=== PATIENT | female | born 1965 | race Caucasian/White ===

== ENCOUNTER 2016-02-14 14:21 | Inpatient (IN) | payer MEDICARE, OTHER ==
[~2016-02-14] VITALS: Ht 157.5 cm; Wt 65.1 kg
[2016-02-14 14:31] VITALS: BP 136/87; PULSE 102; RESP 18; TEMP 98.5; O2SAT 98
[2016-02-14] MEDS ORDERED: LEXA20TA PO (14:38)
--- NOTE | 2016-02-14 14:46 | PD ---
HPI Chief Complaint: Medical Clearance Time Seen by Provider: 14:41 Travel History International Travel<30 days: No Contact w/Intl Traveler<30days: No Traveled to known affect area: No History of Present Illness HPI Patient is a 50-year-old female brought in by the [place] [employer] under a [place] act. Patient was reported missing by her younger sister earlier this morning. She stated that patient has been severely depressed and has schizophrenia. Patient has not been taking her medications in approximately 2 weeks and allegedly left the hotel where she was staying with her sister for no reason and was unable to be located. Per sister's report patient has been seeing things that are not there, having more suspicious thoughts and was all of a sudden afraid of water. In the emergency department patient denies any suicidal or homicidal ideations. She denies any physical complaints at this time. PFSH Past Medical History Depression: Yes Schizophrenia: Yes Social History Alcohol Use: No Tobacco Use: Yes Substance Use: No Allergies-Medications (Allergen,Severity, Reaction): Coded Allergies: No Known Allergies (Unverified , 02/14/16) Reported Meds & Prescriptions Reported Meds & Active Scripts Active Nitrofurantoin Monohydrate Macrocrystals (Nitrofurantoin Monoh/Nitrofur Macro) 100 Mg Cap 100 Mg PO BID 7 Days Reported Lexapro (Escitalopram Oxalate) 20 Mg Tab 20 Mg PO DAILY Review of Systems Except as stated in HPI: all other systems reviewed are Neg Psychiatric: Positive: Depression, Mood Disorder, Other (visual hallucinations , suspicious thoughts) Physical Exam Narrative GENERAL: Well-developed, well-nourished, alert female. Resting comfortably in no acute distress. SKIN: Warm and dry. HEAD: Atraumatic. Normocephalic. EYES: Pupils equal and round. No scleral icterus. No injection or drainage. ENT: No nasal bleeding or discharge. Mucous membranes pink and moist. NECK: Trachea midline. No JVD. CARDIOVASCULAR: Regular rate and rhythm. No murmur appreciated. RESPIRATORY: No accessory muscle use. Clear to auscultation. Breath sounds equal bilaterally. GASTROINTESTINAL: Abdomen soft, non-tender, nondistended. Hepatic and splenic margins not palpable. MUSCULOSKELETAL: No obvious deformities. No clubbing. No cyanosis. No edema. NEUROLOGICAL: Awake and alert. No obvious cranial nerve deficits. Motor grossly within normal limits. Normal speech. PSYCHIATRIC: Flat mood and affect. Data Data Last Documented VS Vital Signs Date Time Temp Pulse Resp B/P Pulse Ox O2 Delivery O2 Flow Rate FiO2 02/14/16 14:31 17 02/14/16 14:31 98.5 102 136/87 98 Orders Complete Blood Count With Diff (02/14/16 14:40) Comprehensive Metabolic Panel (02/14/16 14:40) Urinalysis - C+S If Indicated (02/14/16 14:40) Drug Screen, Random Urine (02/14/16 14:40) Alcohol (Ethanol) (02/14/16 14:40) Psych Screen (02/14/16 14:40) Urine Culture (02/14/16 15:50) Iv Access Insert/Monitor (02/14/16 18:06) Sodium Chlor 0.9% 1000 Ml Inj (Ns 1000 M (02/14/16 18:15) Nitrofurantoin Monohyd Macrocr (Macrobid (02/14/16 18:15) Labs Laboratory Tests Test 02/14/16 02/14/16 14:00 15:50 White Blood Count 9.3 TH/MM3 Red Blood Count 4.84 MIL/MM3 Hemoglobin 14.8 GM/DL Hematocrit 42.1 % Mean Corpuscular Volume 87.0 FL Mean Corpuscular Hemoglobin 30.6 PG Mean Corpuscular Hemoglobin 35.2 % Concent Red Cell Distribution Width 12.9 % Platelet Count 197 TH/MM3 Mean Platelet Volume 7.4 FL Neutrophils (%) (Auto) 62.8 % Lymphocytes (%) (Auto) 30.6 % Monocytes (%) (Auto) 6.0 % Eosinophils (%) (Auto) 0.1 % Basophils (%) (Auto) 0.5 % Neutrophils # (Auto) 5.9 TH/MM3 Lymphocytes # (Auto) 2.9 TH/MM3 Monocytes # (Auto) 0.6 TH/MM3 Eosinophils # (Auto) 0.0 TH/MM3 Basophils # (Auto) 0.0 TH/MM3 CBC Comment DIFF FINAL Differential Comment Sodium Level 143 MEQ/L Potassium Level 3.5 MEQ/L Chloride Level 106 MEQ/L Carbon Dioxide Level 26.3 MEQ/L Anion Gap 11 MEQ/L Blood Urea Nitrogen 11 MG/DL Creatinine 0.90 MG/DL Estimat Glomerular Filtration 66 ML/MIN Rate Random Glucose 117 MG/DL Calcium Level 9.6 MG/DL Total Bilirubin 0.7 MG/DL Aspartate Amino Transf 28 U/L (AST/SGOT) Alanine Aminotransferase 43 U/L (ALT/SGPT) Alkaline Phosphatase 113 U/L Total Protein 7.9 GM/DL Albumin 4.3 GM/DL Ethyl Alcohol Level LESS THAN 3 MG/DL Urine Color DARK-YELLOW Urine Turbidity CLOUDY Urine pH 6.0 Urine Specific Normanna 1.026 Urine Protein 30 mg/dL Urine Glucose (UA) NEG mg/dL Urine Ketones 10 mg/dL Urine Occult Blood SMALL Urine Nitrite POS Urine Bilirubin NEG Urine Urobilinogen 2.0 MG/DL Urine Leukocyte Esterase LARGE Urine RBC 42 /hpf Urine WBC 80 /hpf Urine Squamous Epithelial 4 /hpf Cells Urine Calcium Oxalate Crystals MOD /hpf Urine Bacteria MOD /hpf Urine Mucus FEW /lpf Microscopic Urinalysis Comment CULTURE INDICATED Urine Opiates Screen NEG Urine Barbiturates Screen NEG Urine Amphetamines Screen NEG Urine Benzodiazepines Screen NEG Urine Cocaine Screen NEG Urine Cannabinoids Screen NEG MDM Medical Decision Making Medical Screen Exam Complete: Yes Emergency Medical Condition: Yes Interpretation(s) Vital Signs Date Time Temp Pulse Resp B/P Pulse Ox O2 Delivery O2 Flow Rate FiO2 02/14/16 14:31 98.5 102 18 136/87 98 Differential Diagnosis Mood disorder versus substance abuse versus noncompliance versus electrolyte abnormality versus other Narrative Course Patient is a 50-year-old female who presents emergency Department under [place] act for medication noncompliance, visual hallucinations, suspicious thoughts process. Patient has a history of depression and schizophrenia, she's been off her medications for almost 2 weeks. Patient denied any physical complaints, she further denied any suicidal or homicidal ideations. Patient's affect is flat. Labs ordered and pending. CBC, chemistry, tox screen, alcohol level are all negative. Urinalysis is indicative of urinary tract infection. Patient will be put on nitrofurantoin, given 1 L of normal saline. However patient is medically cleared at this time for psychiatric evaluation. Diagnosis Primary Impression: Medical clearance for psychiatric admission Additional Impression: Urinary tract infection Qualified Code: N39.0 - Urinary tract infection with hematuria, site unspecified Med/Other Pt SpecificInfo: Prescription(s) given Scripts Nitrofurantoin Monohydrate Macrocrystals 100 Mg [id number] Mg PO BID 7 Days Ref 0 Prov:Dionne Parrish 02/14/16 Condition: Stable Dionne Parrish Feb 14, 2016 14:46
[2016-02-14 14:57] LABS: AUTOMATED NEUTROPHIL # 5.9 TH/MM3 (1.8-7.7); BASOPHIL % 0.5 % (0.0-2.0); EOSINOPHIL % 0.1 % (0.0-4.0); HEMATOCRIT 42.1 % (35.0-46.0); HEMO FLAGS DIFF FINAL; LYMPH % 30.6 % (9.0-44.0); LYMPHOCYTE # 2.9 TH/MM3 (1.0-4.8); MEAN CORPUSCULAR HEMOGLOBIN 30.6 PG (27.0-34.0); MEAN CORPUSCULAR HGB CONC 35.2 % (32.0-36.0); NEUT % 62.8 % (16.0-70.0); PLATELET COUNT 197 TH/MM3 (150-450); RED BLOOD COUNT 4.84 MIL/MM3 (4.00-5.30); RED CELL DISTRIBUTION WIDTH 12.9 % (11.6-17.2); WHITE BLOOD COUNT 9.3 TH/MM3 (4.0-11.0)
--- NOTE | 2016-02-14 14:57 | PD ---
Physical Exam Date Seen by Provider: Feb 14, 2016 Time Seen by Provider: 14:30 Narrative I, Dr. Araiza, have reviewed the advance practice practitioner's documentation and am in agreement, met with the patient face to face, made the diagnosis, and the medical decision making was done by me. *My assessment and Findings: This patient has very poor insight and judgment. She is clearly a danger to herself. Data Data Last Documented VS Vital Signs Date Time Temp Pulse Resp B/P Pulse Ox O2 Delivery O2 Flow Rate FiO2 02/14/16 14:31 17 02/14/16 14:31 98.5 102 136/87 98 Orders Complete Blood Count With Diff (02/14/16 14:40) Comprehensive Metabolic Panel (02/14/16 14:40) Urinalysis - C+S If Indicated (02/14/16 14:40) Drug Screen, Random Urine (02/14/16 14:40) Alcohol (Ethanol) (02/14/16 14:40) Psych Screen (02/14/16 14:40) MDM Supervised Visit with VALENTINO: Yes Melinda Araiza MD Feb 14, 2016 14:57
[2016-02-14 15:14] LABS: ALT (GPT) 43 U/L (10-53); ANION GAP 11 MEQ/L (5-15); AST (GOT) 28 U/L (15-37); BICARBONATE 26.3 MEQ/L (21.0-32.0); BLOOD UREA NITROGEN 11 MG/DL (7-18); CHLORIDE 106 MEQ/L (98-107); GLOMERULAR FILTRATION RATE 66 ML/MIN (>89); POTASSIUM 3.5 MEQ/L (3.5-5.1); SODIUM (NA) 143 MEQ/L (136-145)
[2016-02-14 15:17] LABS: ALKALINE PHOSPHATASE 113 U/L (45-117); TOTAL BILIRUBIN ADULT 0.7 MG/DL (0.2-1.0)
[2016-02-14 17:46] LABS: BACTERIA, URINE MOD /hpf; BLOOD, URINE SMALL (NEG); CALCIUM OXALATE CRYSTALS,URINE MOD /hpf; COMMENT (UR) CULTURE INDICATED; CULTURE IF INDICATED CULTURE INDICATED; GLUCOSE,URINE NEG (NEG); KETONE, URINE 10 mg/dL (NEG); MUCUS URINE FEW /lpf (OCC); SQUAMOUS EPITHELIAL CELL URINE 4 /hpf (0-5); URINE COLOR DARK-YELLOW (YELLW/STRAW)
[2016-02-14 17:47] LABS: NITRITE,URINE POS (NEG)
[2016-02-14 17:49] LABS: AMPHETAMINE, URINE NEG (NEG); BARBITURATES, URINE NEG (NEG); COCAINE, URINE NEG (NEG)
[2016-02-14] MEDS ORDERED: NITR100C4 PO (18:08)
[2016-02-14] MEDS ORDERED: NITROFURANTOIN MONOHYD MACROCR 100 MG CAP PO ONE (18:15)
[2016-02-14] MEDS ORDERED: SODIUM CHLOR 0.9% 1000 ML INJ 1,000 ML IV ONE (18:15)
[2016-02-14 19:01] VITALS: BP 145/92; PULSE 90; RESP 18; O2SAT 95
[2016-02-14 20:22] VITALS: BP 146/84; PULSE 113; RESP 18; TEMP 97.4; O2SAT 96
[2016-02-14] MEDS ORDERED: ACETAMINOPHEN 325 MG TAB PO PRN (22:30)
[2016-02-14] MEDS ORDERED: LORazepam 2 MG/ML VIAL IM PRN (22:30)
[2016-02-14] MEDS ORDERED: traZODone HCL 50 MG TAB PO PRN (22:30)
[2016-02-14] MEDS ORDERED: ALUMINUM/MAGNESIUM/SIMETH 30 ML CUP PO PRN (22:30)
[2016-02-14] MEDS ORDERED: MAGNESIUM HYDROXIDE SUSP 30 ML CUP PO PRN (22:30)
[2016-02-14] MEDS ORDERED: LORazepam 1 MG TAB PO PRN (22:30)
[2016-02-14 23:13] VITALS: BP 138/75; PULSE 92; RESP 18
[2016-02-15 06:04] VITALS: BP 141/63; PULSE 94; RESP 18; TEMP 98.2; O2SAT 96
[2016-02-15] MEDS: risperiDONE 0.5 MG TAB PO SCH ×2 (09:30→20:51)
[2016-02-15] MEDS: ESCITALOPRAM OXALATE 20 MG TAB PO SCH (09:30)
--- NOTE | 2016-02-15 13:08 | PD.CONS ---
Provisional Diagnosis Admission Date Feb 14, 2016 at 21:50 [place] I. schizoaffective disorder, bipolar type [place] II. Deferred History of Present Illness Service Psychiatry Consult Requested By Primary Care Physician Unknown HPI the patient is a 50-year-old woman, domiciled alone, single, with psychiatric history of a schizoaffective disorder, no significant medical history brought in by the [place] [employer] under a [place] act. As per ER note: "Patient was reported missing by her younger sister earlier this morning. She stated that patient has been severely depressed and has schizophrenia. Patient has not been taking her medications in approximately 2 weeks and allegedly left the hotel where she was staying with her sister for no reason and was unable to be located. Per sister's report patient has been seeing things that are not there, having more suspicious thoughts and was all of a sudden afraid of water". Chart was reviewed, collateral information was not available at this moment, patient was evaluated and seen in the psychiatric li, case was discussed with nurse in charge. On psychiatric evaluation the patient is guarded, visibly paranoid, selectively mute, very irritable, refusing to cooperate saying "I don't know you, why should I speak with you, please leave me alone". She also says "I am in danger here, I don't know any of these people". However, as per nurse patient has been quite in her room, with not aggressive behavior or agitation observed, however she is isolated and poorly interactive. Review of Systems ROS Limitations: Uncooperative Past Family Social History Coded Allergies: No Known Allergies (Unverified , 02/14/16) Active Scripts Nitrofurantoin Monohydrate Macrocrystals 100 Mg [id number] Mg PO BID 7 Days Ref 0 Prov:Dionne Parrish 02/14/16 Reported Medications Escitalopram (Lexapro)20 Mg Tab20 Mg PO DAILY #30 TAB Ref 0 02/14/16 Current Medications Medications (Trade) Dose Ordered Sig/Brooklynn Route Start Time Stop Time Status Last Admin (risperDAL) 0.5 mg BID PO 02/15/16 09:00 02/15/16 09:30 (Lexapro) 20 mg DAILY PO 02/15/16 09:00 02/15/16 09:30 (Ativan) 1 mg Q6H PRN PO 02/14/16 22:30 (Ativan Inj) 1 mg Q6H PRN IM 02/14/16 22:30 (Desyrel) 50 mg HS PRN PO 02/14/16 22:30 (Tylenol) 650 mg Q4H PRN PO 02/14/16 22:30 (Milk Of Magnesia Liq) 30 ml DAILY PRN PO 02/14/16 22:30 (Mag-Al Plus Susp Liq) 30 ml Q6H PRN PO 02/14/16 22:30 Physical Exam Vital Signs Vital Signs Date Time Temp Pulse Resp B/P Pulse Ox O2 Delivery O2 Flow Rate FiO2 02/15/16 06:04 98.2 94 18 141/63 96 02/14/16 20:22 Room Air I/O 02/14/16 02/14/16 02/15/16 08:00 16:00 00:00 Intake Total 200 ml Balance 200 ml Mental Status Examination Limited due to level of uncooperation Appearance woman, very malodorous, poor hygiene, [facility], guarded and uncooperative Speech: Hesitant Thought Content: Paranoid Insight: Poor Judgement: Impulsive Motor Activity: Normal gait Assessment & Plan Problem List: (1) Schizoaffective disorder Assessment & Plan: On psychiatric evaluation patient is visibly paranoid, guarded, poorly cooperative, internally preoccupied. She refuses to provide information for the psychiatric assessment with visible distress, saying that she doesn't know me and she doesn't know anybody here. As per younger sister, patient has been wandering in the street, very disorganized, not taking care of herself, not taking any psychiatric medication , disorganized, talking to herself. Patient is acutely psychotic and needs psychiatric admission for stabilization and medication management. Will Consul hospitalist for UTI. Continue current psychotropics. ICD Code: F25.9 Assessment & Plan Estimated LOS: days Nasim Lane MD Feb 15, 2016 13:08
[2016-02-16 06:32] VITALS: BP 122/81; PULSE 103; RESP 16; TEMP 97.9; O2SAT 96
[2016-02-16] MEDS: ESCITALOPRAM OXALATE 20 MG TAB PO SCH (08:35)
[2016-02-16] MEDS: risperiDONE 0.5 MG TAB PO SCH ×2 (08:35→20:54)
[2016-02-16] MEDS: SULFAMETHOXAZOLE-TRIMETHOPRIM DS 800-160 MG TAB PO SCH ×2 (08:43→20:53)
--- NOTE | 2016-02-16 10:25 | PD.CONS ---
HPI Service [facility] Consult Requested By Psychiatric services Reason for Consult Gram-negative rods and urine culture Primary Care Physician Unknown Diagnoses: History of Present Illness 50-year-old female patient with a past medical history was includes schizophrenia, anxiety/depression. Patient is currently admitted to inpatient psychiatric center with the consulted for assistance with management of gram negative rods and urine culture. Patient appears to be asymptomatic denies dysuria urgency frequency fevers chills back pain. Patient reports she had a urinary tract infection months ago where she did have dysuria and increased frequency but reports no symptoms at this time. Patient reports medically she feels well denies chest pain shortness of breath nausea vomiting diarrhea constipation cough congestion fevers or chills. White blood cell count noted to be 9.3 and patient is afebrile. BUN 11 creatinine 0.90estimated GFR 66. Urinalysis reviewed reveals high protein positive nitrates large amount leukocyte esterase with red blood cells white blood cells calcium oxalate crystals bacteria and mucus Review of Systems Other All other review of systems completed and negative except as mentioned in history of present illness Past Family Social History Allergies: Coded Allergies: No Known Allergies (Unverified , 02/14/16) Past Medical History Schizophrenia depression and anxiety. Patient denies diabetes CAD hypertension hyperlipidemia or cancer Past Surgical History Patient reports no prior surgeries Reported Medications Lexapro (Escitalopram Oxalate) 20 Mg Tab 20 Mg PO DAILY Active Ordered Medications Current Medications Medications (Trade) Dose Ordered Sig/Brooklynn Route Start Time Stop Time Status Last Admin (risperDAL) 0.5 mg BID PO 02/15/16 09:00 02/16/16 08:35 (Lexapro) 20 mg DAILY PO 02/15/16 09:00 02/16/16 08:35 (Ativan) 1 mg Q6H PRN PO 02/14/16 22:30 (Ativan Inj) 1 mg Q6H PRN IM 02/14/16 22:30 (Desyrel) 50 mg HS PRN PO 02/14/16 22:30 (Tylenol) 650 mg Q4H PRN PO 02/14/16 22:30 (Milk Of Magnesia Liq) 30 ml DAILY PRN PO 02/14/16 22:30 (Mag-Al Plus Susp Liq) 30 ml Q6H PRN PO 02/14/16 22:30 (Bactrim Ds 800-160 Mg) 1 tab Q12HR PO 1/1/17 09:00 02/23/16 08:59 02/16/16 08:43 Family History Father had heart disease Social History Patient smokes one pack of cigarettes per day and drinks alcohol occasionally Physical Exam Vital Signs Vital Signs Date Time Temp Pulse Resp B/P Pulse Ox O2 Delivery O2 Flow Rate FiO2 02/16/16 06:32 97.9 103 16 122/81 96 Physical Exam GENERAL: This is a well-nourished, well-developed patient, in no apparent distress. SKIN: No rashes, ecchymoses or lesions. Cool and dry. HEAD: Atraumatic. Normocephalic. No temporal or scalp tenderness. EYES: Extraocular motions intact. No scleral icterus. No injection or drainage. ENT: Nose without bleeding, purulent drainage or septal hematoma. Throat without erythema, tonsillar hypertrophy or exudate. Uvula midline. Airway patent. NECK: Trachea midline. No JVD or lymphadenopathy. Supple, nontender, no meningeal signs. CARDIOVASCULAR: Regular rate and rhythm without murmurs, gallops, or rubs. RESPIRATORY: Clear to auscultation. Breath sounds equal bilaterally. No wheezes , rales, or rhonchi. GASTROINTESTINAL: Abdomen soft, non-tender, nondistended. No guarding. GENITOURINARY: No CVA tenderness no suprapubic tenderness MUSCULOSKELETAL: Extremities without clubbing, cyanosis, or edema. No joint tenderness, effusion, or edema noted. No calf tenderness. Negative Homans sign bilaterally. NEUROLOGICAL: Awake and alert. No focal deficits. Motor and sensory grossly within normal limits. Five out of 5 muscle strength in all muscle groups. Normal speech. Laboratory Date/Time Procedure Status Source Growth 02/14/16 15:50 Urine Culture - Preliminary Resulted Urine Clean Catch Gram Negative Kraig Result Diagram: 02/14/16 1400 02/14/16 1400 Assessment and Plan Assessment and Plan 50-year-old female patient with a past medical history was includes schizophrenia, anxiety/depression. Patient is currently admitted to inpatient psychiatric center with the consulted for assistance with management of gram negative rods and urine culture. Urinary tract infection with gram-negative rods on urine culture Patient also noted to have calcium oxalate crystals and urinalysis with small amount of occult blood Will start Bactrim DS 7 days Record patient follow up with PCP after discharge Continue to follow urine culture results adjust antibiotics as necessary Schizophrenia anxiety/depression to be managed by primary team Tobacco abuse patient counseled on the health risk of tobacco in encouraged to quit smoking Offered nicotine patch patient denied neck DVT prophylaxis patient is ambulatory Discussed with patient RN and Yessenia Betancourt Feb 16, 2016 10:25
--- NOTE | 2016-02-16 10:30 | HHI.HP ---
Provisional Diagnosis Admission Date Feb 14, 2016 at 21:50 [place] I. schizoaffective disorder, bipolar type [place] II. Deferred Certification of Person's Competence To Provide Express and Informed Consent I have personally examined Eileen Billings , a person being served at [facility] [[email or web address]] on, Feb 16, 2016 10:29. Express and informed consent means consent voluntarily given in writing, by a competent person, after sufficient explanation and disclosure of the subject matter involved to enable the person to make a knowing and willful decision without any element of force, fraud, deceit, duress, or other form of constraint or coercion. This person is 18 years of age or older, is not now known to be incompetent to consent to treatment with a guardian advocate, and does not have a health care surrogate or proxy currently making medical treatment decisions. I have found this person to be one of the following: [] Competent to provide express and informed consent, as defined above, for voluntary admission to this facility and is competent to provide express and informed consent for treatment. He/she has the consistent capacity to make well reasoned, willful, and knowing decisions concerning his or her medical or mental health treatment. The person fully and consistently understands the purpose of the admission for examination/placement and is fully capable of personally exercising all rights assured [place] [] Incompetent to provide express and informed consent to voluntary admission, and this is incompetent to provide express and informed consent to treatment. The person must be transferred to involuntary status and a petition for a guardian advocate filed with the Circuit Court. [X] Refusing to provide express and informed consent to voluntary admission but is competent to provide express and informed consent for treatment. The person must be discharged or transferred to involuntary status. Form shall be completed within 24 hours of a person's arrival at the receiving facility and filed in the clinical record of each person: 1. Admitted on a voluntary basis 2. Permitted to provide express and informed consent to his/her own treatment 3. Allowed to transfer from involuntary to voluntary status 4. Prior to permitting a person to consent to his or her own treatment after having been previously found incompetent to consent to treatment. History of Present Illness Capacity: Has Capacity HPI the patient is a 50-year-old woman, domiciled alone, single, with psychiatric history of a schizoaffective disorder, no significant medical history brought in by the [place] [employer] under a [place] act. As per ER note: "Patient was reported missing by her younger sister earlier this morning. She stated that patient has been severely depressed and has schizophrenia. Patient has not been taking her medications in approximately 2 weeks and allegedly left the hotel where she was staying with her sister for no reason and was unable to be located. Per sister's report patient has been seeing things that are not there, having more suspicious thoughts and was all of a sudden afraid of water". Chart was reviewed, collateral information was not available at this moment, patient was evaluated and seen in the psychiatric li, case was discussed with nurse in charge. On psychiatric evaluation the patient is guarded, visibly paranoid, selectively mute, very irritable, refusing to cooperate saying "I don't know you, why should I speak with you, please leave me alone". She also says "I am in danger here, I don't know any of these people". However, as per nurse patient has been quite in her room, with not aggressive behavior or agitation observed, however she is isolated and poorly interactive. Past Family Social History Coded Allergies: No Known Allergies (Unverified , 02/14/16) Active Scripts Nitrofurantoin Monohydrate Macrocrystals 100 Mg [id number] Mg PO BID 7 Days Ref 0 Prov:Dionne Parrish 02/14/16 Reported Medications Escitalopram (Lexapro)20 Mg Tab20 Mg PO DAILY #30 TAB Ref 0 02/14/16 Current Medications Medications (Trade) Dose Ordered Sig/Brooklynn Route Start Time Stop Time Status Last Admin (risperDAL) 0.5 mg BID PO 02/15/16 09:00 02/16/16 08:35 (Lexapro) 20 mg DAILY PO 02/15/16 09:00 02/16/16 08:35 (Ativan) 1 mg Q6H PRN PO 02/14/16 22:30 (Ativan Inj) 1 mg Q6H PRN IM 02/14/16 22:30 (Desyrel) 50 mg HS PRN PO 02/14/16 22:30 (Tylenol) 650 mg Q4H PRN PO 02/14/16 22:30 (Milk Of Magnesia Liq) 30 ml DAILY PRN PO 02/14/16 22:30 (Mag-Al Plus Susp Liq) 30 ml Q6H PRN PO 02/14/16 22:30 (Bactrim Ds 800-160 Mg) 1 tab Q12HR PO 02/16/16 09:00 02/23/16 08:59 02/16/16 08:43 Physical Exam Vital Signs Vital Signs Date Time Temp Pulse Resp B/P Pulse Ox O2 Delivery O2 Flow Rate FiO2 02/16/16 06:32 97.9 103 16 122/81 96 02/14/16 20:22 Room Air Mental Status Examination Speech: Hesitant Thought Content: Paranoid Insight: Poor Judgement: Impulsive Motor Activity: Normal gait Assessment & Plan Problem List: (1) Schizoaffective disorder Assessment & Plan: On psychiatric evaluation patient is visibly paranoid, guarded, poorly cooperative, internally preoccupied. She refuses to provide information for the psychiatric assessment with visible distress, saying that she doesn't know me and she doesn't know anybody here.As per younger sister, patient has been wandering in the street, very disorganized, not taking care of herself, not taking any psychiatric medication, disorganized, talking to herself.Patient is acutely psychotic and needs psychiatric admission for stabilization and medication management.Will Consul hospitalist for UTI. ICD Code: F25.9 Assessment & Plan Estimated LOS: Nasim Joe MD Feb 16, 2016 10:30
[2016-02-16 20:00] VITALS: BP 112/64; PULSE 83; RESP 16; TEMP 98.2; O2SAT 97
[2016-02-17 05:37] VITALS: BP 113/70; PULSE 80; RESP 18; TEMP 97.7; O2SAT 97
[2016-02-17 06:17] VITALS: BP 113/76; PULSE 80; RESP 18; TEMP 97.7; O2SAT 97
[2016-02-17] MEDS: AMOXICILLIN/CLAVULANATE K 875 MG TAB PO SCH ×2 (09:00→20:14)
[2016-02-17] MEDS: ESCITALOPRAM OXALATE 20 MG TAB PO SCH (09:12)
[2016-02-17] MEDS: risperiDONE 0.5 MG TAB PO SCH ×2 (09:13→20:14)
--- NOTE | 2016-02-17 12:32 | HHI.PYPN ---
Subjective Remarks Patient seen, chart reviewed, case discussed with staff The patient continues to have some confusion, for example she does not know the name of the hospital where she is, but she does know she is in [place] and it is 02/17/16. She is feeling a lot of stress, financially and family stress and states she feels helpless much of the time. Her depressive symptoms continue. The patient feels comfortable with lexapro, but expressed concern about the use of risperidone, and informed consent and counseling were undertaken to explain augmentation of antidepressant medications with neuroleptics as well as the side effects of neuroleptics. Review of Systems Except as stated in HPI: all other systems reviewed are Neg Psychiatric: COMPLAINS OF: Anxiety, Confusion, Mood changes, Depression Objective Alert: Yes [place]: Person, Situation Mood: Anxious, Depressed Affect: Labile Memory Intact: Immediate Hallucinations: Other (appears to RIS) Delusions: Yes Delusion Type: Paranoid Suicidal: Ideation (denies) Homicidal: Ideation (denies) Insight/Judgement poor Labs Date/Time Procedure Status Source Growth 02/14/16 15:50 Urine Culture - Preliminary Resulted Urine Clean Catch Escherichia Coli Vitals/IOs Vital Signs Date Time Temp Pulse Resp B/P Pulse Ox O2 Delivery O2 Flow Rate FiO2 02/17/16 06:17 97.7 80 18 113/76 97 02/14/16 20:22 Room Air Assessment & Plan Problem List: (1) Schizoaffective disorder Assessment & Plan: Patient continues confused, depressed, stressed and appears to be internally preoccupied. She responded to counseling regarding augmentation of antidepressant treatment favorably and I will continue with the present medications. Will follow closely. ICD Code: F25.9 Assessment & Plan Estimated LOS: days Justification for Cont. Inpt. medication changed require active monitoring, impairment in reality construction , risk of decompensation Becky Wallace MD Feb 17, 2016 12:32
--- NOTE | 2016-02-17 15:20 | HHI.PR ---
Subjective Remarks Follow up UTI Patient ambulating about room. Offers no medical complaints Appears to be in no acute distress Objective Vitals Vital Signs Date Time Temp Pulse Resp B/P Pulse Ox O2 Delivery O2 Flow Rate FiO2 02/17/16 06:17 97.7 80 18 113/76 97 02/17/16 05:37 97.7 80 18 113/70 97 02/16/16 20:00 98.2 83 16 112/64 97 Result Diagram: 02/14/16 1400 02/14/16 1400 Objective Remarks GENERAL: This is a well-nourished, well-developed patient, in no apparent distress. CARDIOVASCULAR: Regular rate and rhythm without murmurs, gallops, or rubs. RESPIRATORY: Clear to auscultation. Breath sounds equal bilaterally. No wheezes , rales, or rhonchi. GASTROINTESTINAL: Abdomen soft, non-tender, nondistended. Normal active bowel sounds GENITOURINARY: no CVA tenderness MUSCULOSKELETAL: Extremities without clubbing, cyanosis, or edema. NEURO: Alert & Oriented x4 to person, place, time, situation. Moves all ext x4 A/P Assessment and Plan 50-year-old female patient with a past medical history was includes schizophrenia, anxiety/depression. Patient is currently admitted to inpatient psychiatric center with the consulted for assistance with management of gram negative rods and urine culture. Urinary tract infection with gram- E coli resistant to Bactrim Patient also noted to have calcium oxalate crystals DC Bactrim DS Start Augmentin 875mg BID x 7days Schizophrenia anxiety/depression to be managed by primary team Tobacco abuse patient counseled on the health risk of tobacco in encouraged to quit smoking Offered nicotine patch patient denied neck DVT prophylaxis patient is ambulatory Discussed with patient RN Patient appears medically stable will sign off Written by Yessenia Flood, acting as scribe for Dr. King on 02/17/16 at 15:19. The documentation accurately reflects the work performed [id number] by me on at 15:19. Yessenia Flood Feb 17, 2016 15:20 Adrian King MD Feb 18, 2016 17:11
[2016-02-17 21:34] VITALS: BP 100/67; PULSE 76; RESP 19; TEMP 98.1; O2SAT 97
[2016-02-18 06:19] VITALS: BP 109/67; PULSE 90; RESP 18; TEMP 97.7; O2SAT 95
[2016-02-18] MEDS: risperiDONE 0.5 MG TAB PO SCH (08:09)
[2016-02-18] MEDS: AMOXICILLIN/CLAVULANATE K 875 MG TAB PO SCH (08:09)
[2016-02-18] MEDS: ESCITALOPRAM OXALATE 20 MG TAB PO SCH (08:10)
[2016-02-18] MEDS ORDERED: MACR100C2 PO (08:19)
[2016-02-18] MEDS ORDERED: ESCI20TA PO (08:19)
[2016-02-18] MEDS ORDERED: RISP0.5T20 PO (08:20)
--- NOTE | 2016-02-18 08:26 | HHI.DS ---
Psychiatry Discharge Summary Inpatient Psychiatric care?: Yes Advance Directive: No Reason Not Provided: Due to Patient Condition Mental Health AdvanceDirective: No Health Care Proxy: No Admission Admission Date Feb 14, 2016 at 21:50 Admission Diagnosis: (1) Schizoaffective disorder ICD Code: F25.9 Brief History the patient is a 50-year-old woman, domiciled alone, single, with psychiatric history of a schizoaffective disorder, no significant medical history brought in by the [employer] under a [place] act. As per ER note: "Patient was reported missing by her younger sister earlier this morning. She stated that patient has been severely depressed and has schizophrenia. Patient has not been taking her medications in approximately 2 weeks and allegedly left the hotel where she was staying with her sister for no reason and was unable to be located. Per sister's report patient has been seeing things that are not there, having more suspicious thoughts and was all of a sudden afraid of water". Chart was reviewed, collateral information was not available at this moment, patient was evaluated and seen in the psychiatric li, case was discussed with nurse in charge. On psychiatric evaluation the patient is guarded, visibly paranoid, selectively mute, very irritable, refusing to cooperate saying "I don't know you, why should I speak with you, please leave me alone". She also says "I am in danger here, I don't know any of these people". However, as per nurse patient has been quite in her room, with not aggressive behavior or agitation observed, however she is isolated and poorly interactive. Tobacco Use In Past 30 Days: No Tobacco Past 30 Days Alcohol Use: Never Hospital Course Patient's hospital course was uneventful, she show compliance with medications from date of admission, though some concern about her hygiene though with assistance the patient did vague which did improve her hygiene. There is a conversation with her family. They were aware of the patient's mental health issues. They wish to return to their home in [place] with the patient to get further mental health care there. Patient show no behavior problems on the unit she also wishes to be returned to her family to return home to [place]. Patient denies suicidality homicidality voices or visions. Thus patient will be discharged today to her family who be given 1 month supply of her Lexapro and her Respinol and a 1 week supply of her Macrobid. Jacqueline who family to arrange for follow-up in [place]. Patient given a.m. meds prior to discharge Results Blood Pressure 109 / 67 Vital Signs Date Time Temp Pulse Resp B/P Pulse Ox O2 Delivery O2 Flow Rate FiO2 02/18/16 06:19 97.7 90 18 109/67 95 02/14/16 20:22 Room Air Urine toxicology negative, urinalysis shows culture indicated Summary of Procedures None done Pending results at discharge: Yes (preliminary urine culture results show E coli) Medications # of Antipsychotic meds at D/C: 1 Approp Antipsych med options 1 - Minimum of three failed multiple trials of monotherapy. 2 - Documented plan to taper to monotherapy due to previous use of multiple meds OR cross-taper in progress at D/C. 3 - Documentation of augmentation of Clozapine. 4 - Justification other than those listed in allowable values 1-3, document here : Discharge Discharge Date: Feb 18, 2016 Discharge Diagnosis: (1) Schizoaffective disorder Diagnosis: Principal ICD Code: F25.9 (2) Urinary tract infection Diagnosis: Secondary ICD Code: N39.0 Mental Status Exam at Disch Patient alert oriented calm cooperative, normal active, mood is euthymic to somewhat restricted affect is decreased range and intensity. Speech rate and rhythm is slow is goal oriented just a small amount of tangentiality. No auditory or visual hallucinations no delusions insight and judgment is poor to fair cognition appears grossly intact Pt Condition on Discharge: Stable Discharge Disposition: Discharge Home Discharge Instructions Diet Instructions: As Tolerated, No Restrictions Activities you can perform: Regular-No Restrictions Scheduled Appointment: follow-up mental health services in home town in [place] Discharge Time > 30 minutes Discharge/Advance Care Plan Health Problems: (1) Schizoaffective disorder Goals to promote your health * To prevent worsening of your condition and complications * To maintain your health at the optimal level Directions to meet your goals Take your medications as prescribed Follow your dietary instruction Follow activity as directed Keep your appointments as scheduled Take your immunizations and boosters as scheduled If your symptoms worsen call your PCP, if no PCP go to Urgent Care Center or Emergency Room For 07/09 questions related to your inpatient stay or results of tests pending at discharge, please contact Dr. Levi Cummins at Smoking is Dangerous to Your Health. Avoid second hand smoking Problem Qualifiers (1) Urinary tract infection: Qualified Code: N39.0 - Urinary tract infection with hematuria, site unspecified Levi Cummins MD Feb 18, 2016 08:26
[2016-02-18] MEDS ORDERED: NITROFURANTOIN MONOHYD MACROCR 100 MG CAP PO SCH (09:00)
[2016-02-18] MEDS ORDERED: ESCITALOPRAM OXALATE 20 MG TAB PO SCH (09:00)
== END 2016-02-18 14:05 | disposition home or self-care (01) | DRG 885 ==
LOC: NEPC 14:21 → NEDA 21:50 → H260 23:40
PROVIDERS: ADMIT Psychiatry & Neurology Addiction Medicine; ATTEND Psychiatry & Neurology Addiction Medicine
DX: F25.0 Schizoaffective disorder, bipolar type (principal); N39.0 Urinary tract infection, site not specified; Z91.14 Patient's other noncompliance with medication regimen; R31.9 Hematuria, unspecified; F17.210 Nicotine dependence, cigarettes, uncomplicated; B96.20 Unspecified Escherichia coli [E. coli] as the cause of diseases classified elsewhere; F32.9 Major depressive disorder, single episode, unspecified; F41.9 Anxiety disorder, unspecified
CPT/HCPCS: 80053; 80301; 80320; 81001; 85025; 87077; 87086; 87186; 96360; 96361; G0479; J7030